=== PATIENT | male | born 1965 | race Caucasian/White ===

== ENCOUNTER 2016-11-14 17:15 | Observation (INO) ==
--- NOTE | 2016-11-14 17:26 | Emergency Department Note ---
Disposition Clinical Impression: Chest pain Disposition: Admitted As Inpatient General Adult HPI - General Chief complaint: ED Chest Pain Stated complaint: cp Time Seen by Provider: 11/14/16 17:16 Nursing Notes Reviewed: Yes Vital Signs Reviewed: Yes - Related Data Home Medications Medication Instructions Recorded Confirmed Lisinopril 02/20/16 Nexium 02/20/16 Tylenol 02/20/16 Previous Rx's Medication Instructions Recorded Amoxicillin 875 mg PO BID #20 tablet 02/20/16 GuaiFENesin ER [Mucinex] 1,200 mg PO BID #20 tbbp.12hr 02/20/16 Loratadine/Pseudophed (12 HR) 1 each PO BID #20 tab.er.12h 02/20/16 [Claritin D (12HR)] Allergies Allergy/AdvReac Type Severity Reaction Status Date / Time No Known Allergies Allergy Verified 02/20/16 10:54 Past Medical History - Past Medical History Medical history: Reports: GERD, hypertension - Social History Smoking Status: Never smoker Smokeless Tobacco Status: No Alcohol use: Reports: none Course Vital Signs Temperature 97.9 F 11/14/16 17:16 Pulse Rate 86 11/14/16 17:16 Respiratory Rate 18 11/14/16 17:16 Blood Pressure 137/93 11/14/16 17:16 O2 Sat by Pulse Oximetry 100 11/14/16 17:16 Temperature 97.9 F 11/14/16 17:16 Pulse Rate 85 11/14/16 17:50 Respiratory Rate 18 11/14/16 17:50 Blood Pressure 112/77 11/14/16 17:50 O2 Sat by Pulse Oximetry 98 11/14/16 17:50 Oxygen Delivery Oxygen Delivery Room Air Medical Decision Making - [facility] Narrative Medical decision making narrative: I examined this patient and my medical decision-making was reviewed with the Resident Physician. I agree with the documented findings, disposition and treatment plan as described except to the extent set forth below. Patient seen and evaluated on arrival with EMS and Dr. Churchill, I agree with his evaluation and management plan, cigarettes care the patient's stay. Patient had chest pressure after eating. He states had a history of GERD and thought it could be that. He called squad to gave him aspirin and nitroglycerin the pain started resolving on its own. No cardiac history in the past. Return to work EKG chest x-ray troponin labs and reassess. He is in agreement with this plan. 1800 hrs.: Patient's pain-free after 1 nitroglycerin. He did have his aspirin. Second EKG is done and shows a sinus rhythm, rate is 86, QRS is 89, QTC is 326 , no signs of acute ischemia, compared this with his previous EKG and shows no changes except for rate. Waiting on the rest of his labs. And then admission. Chest X-Ray 11/14/16 17:18 IMPRESSION: No acute cardiopulmonary process. D/ / Alen Ferreira MD / Alen Ferreira MD Interpreting Provider: Alen Ferreira MD 1836: Troponin is back as negative. Which is to be expected since the short duration of pain. He is pain-free at this time after 1 nitroglycerin. He did have his aspirin. Paging hospitalist for admission. He is in agreement. Impression is chest pain rule out ACS. - Lab Data Result diagrams: 11/14/16 17:51 11/14/16 17:51 Lab Results 11/14/16 11/14/16 11/14/16 Range/Units 17:51 17:51 17:51 WBC 5.9 (4.3-11.1) K/mcL RBC 5.46 (4.19-5.50) M/mcL Hgb 15.8 (12.9-16.9) g/dL Hct 45.9 (37.5-50.1) % MCV 84.1 (83.0-100.0) fL MCH 28.9 (28.0-33.3) pg MCHC 34.4 (31.6-35.5) g/dL RDW 12.4 (11.5-14.5) % Plt Count 217 (140-400) K/mcL MPV 10.4 (9.4-12.4) fL Immature Gran % 0.2 (0-4) % Seg Neutrophils % 64.2 % Lymphocytes % 24.3 % Monocytes % 7.6 % Eosinophils % 3.0 % Basophils % 0.7 % Neutrophils # 3.8 (1.6-8.9) K/mcL Lymphocytes # 1.4 (0.6-4.6) K/mcL Monocytes # 0.5 (0.0-1.3) K/mcL Eosinophils # 0.2 (0.0-0.6) K/mcL Basophils # 0.0 (0.0-0.2) K/mcL Sodium 139 (136-145) mEq/L Potassium 4.4 (3.5-4.5) mEq/L Chloride 104 (98-109) mEq/L Carbon Dioxide 31 H (19-29) mEq/L BUN 15 (8-26) mg/dL Creatinine 1.16 (0.72-1.25) mg/dL Est GFR ( Amer) > 60 (> 60) Est GFR (Non-Af Amer) > 60 (> 60) BUN/Creatinine Ratio 13 (6-26) Glucose 105 H (70-99) mg/dL Calculated Osmolality 289 (280-300) Calcium 9.7 (8.6-10.8) mg/dL Troponin I 0.00 (0-0.03) ng/mL
[2016-11-14] MEDS ORDERED: Nitroglycerin 0.4 MG TAB.SUBL SL PRN (17:32)
--- NOTE | 2016-11-14 17:52 | Emergency Department Note ---
Disposition Clinical Impression: Chest pain Qualifiers: Chest pain type: unspecified Qualified Code(s): R07.9 - Chest pain, unspecified Disposition: Admitted As Inpatient Condition: Good Time of Disposition: 18:45 General Adult HPI - General Chief complaint: ED Chest Pain Stated complaint: cp Time Seen by Provider: 11/14/16 17:16 Source: patient, EMS Mode of arrival: EMS Limitations: no limitations Nursing Notes Reviewed: Yes Vital Signs Reviewed: Yes - History of Present Illness HPI Narrative: This 51-year-old male with a past medical history of hypertension presents to the emergency department via EMS with a chief complaint of chest pain that started 2 hours ago. He describes his pain as a pressure on his chest that radiates into his left arm and left lower scapula. He states that he ate a hamburger, then started walking around at work and then he started having the pressure in his chest after he exerted himself. He states that this is his first episode of having chest pain like this. He states that after about 5 minutes, the episode started to resolve. He denies any family history of myocardial infarction, denies smoking, denies having diabetes, denies having hyper lipidemia. Pain Scale: 2 - Related Data Home Medications Medication Instructions Recorded Confirmed Esomeprazole Magnesium [Nexium 20 mg PO DAILY 02/20/16 11/14/16 24Hr] Lisinopril [Zestril] 10 mg PO DAILY 02/20/16 11/14/16 Albuterol Sulfate [Albuterol 2 puff IH Q4H PRN 11/14/16 11/14/16 Inhaler] Famotidine [Heartburn Prevention] 20 mg PO DAILY PRN 11/14/16 11/14/16 Fluticasone Propionate Nasal 50 mcg NS DAILY PRN 11/14/16 11/14/16 [Flonase] Loratadine [Claritin] 10 mg PO DAILY 11/14/16 11/14/16 Allergies Allergy/AdvReac Type Severity Reaction Status Date / Time No Known Allergies Allergy Verified 11/14/16 18:57 Constitutional: Denies: fever, chills, weakness Eyes: Denies: eye pain, eye discharge Cardiovascular: Reports: chest pain (Described as pressure lasting for approximately 5 minutes, not completely resolved.). Denies: palpitations Respiratory: Reports: cough, dyspnea. Denies: wheezes, hemoptysis, sputum production Gastrointestinal: Reports: nausea. Denies: abdominal pain, vomiting Integumentary: Denies: rash, abrasion Neurological: Reports: paresthesias (Left arm). Denies: headache Past Medical History - Past Medical History Medical history: Reports: GERD, hypertension Psychiatric history: Reports: no psych history - Social History Smoking Status: Never smoker Smokeless Tobacco Status: No Alcohol use: Reports: none Drug use: Reports: none Physical Exam - General Limitations: no limitations General appearance: alert, in no apparent distress - Head Head exam: atraumatic - Eye Eye exam: Absent: scleral icterus, conjunctival injection - Neck Neck exam: Present: full ROM, trachea midline. Absent: tenderness - Chest Chest inspection: Present: normal inspection, symmetric chest wall rise. Absent : tenderness - Respiratory Respiratory exam: Present: normal lung sounds bilaterally. Absent: respiratory distress, wheezes, stridor - Cardiovascular Cardiovascular exam: Present: regular rate, normal rhythm, normal heart sounds - Abdominal Exam Abdominal exam: Present: soft, Non-Tender. Absent: distention, guarding, rebound, rigidity - Extremities Exam Extremities exam: Present: normal inspection. Absent: tenderness, pedal edema - Back Exam Back exam: Present: normal inspection, full ROM. Absent: tenderness - Neurological Exam Neurological exam: Present: alert, oriented X3 - Psychiatric Psychiatric exam: Present: normal affect, normal mood - Skin Skin exam: Present: warm, diaphoresis Course - Reevaluation(s) Reevaluation #1: He was given 1 nitroglycerin sublingual and pain completely resolved. His blood pressure was 112/77. Time: 17:53 Vital Signs Temperature 97.9 F 11/14/16 17:16 Pulse Rate 86 11/14/16 17:16 Respiratory Rate 18 11/14/16 17:16 Blood Pressure 137/93 11/14/16 17:16 O2 Sat by Pulse Oximetry 100 11/14/16 17:16 Temperature 97.9 F 11/14/16 17:16 Pulse Rate 85 11/14/16 17:50 Respiratory Rate 18 11/14/16 18:53 Blood Pressure 111/74 11/14/16 18:53 O2 Sat by Pulse Oximetry 98 11/14/16 17:50 Oxygen Delivery Oxygen Delivery Room Air Medical Decision Making - MDM Narrative Medical decision making narrative: This is a 51-year-old male who presented to the emergency department via EMS with typical chest pain. Our biggest concern at this time was myocardial infarction. We performed an EKG, chest x-ray, troponin, CBC, CMP. All of the results of our labs, tests, and imaging were negative. Due to his chest pain being typical in nature, and the fact that he is a male over 40, and has hypertension, I think it will be in his best interest to admit him to the hospital for further evaluation. - Differential Diagnosis 1. Chest Pain - Lab Data Result diagrams: 11/14/16 17:51 11/14/16 17:51 Lab Results 11/14/16 11/14/16 11/14/16 Range/Units 17:51 17:51 17:51 WBC 5.9 (4.3-11.1) K/mcL RBC 5.46 (4.19-5.50) M/mcL Hgb 15.8 (12.9-16.9) g/dL Hct 45.9 (37.5-50.1) % MCV 84.1 (83.0-100.0) fL MCH 28.9 (28.0-33.3) pg MCHC 34.4 (31.6-35.5) g/dL RDW 12.4 (11.5-14.5) % Plt Count 217 (140-400) K/mcL MPV 10.4 (9.4-12.4) fL Immature Gran % 0.2 (0-4) % Seg Neutrophils % 64.2 % Lymphocytes % 24.3 % Monocytes % 7.6 % Eosinophils % 3.0 % Basophils % 0.7 % Neutrophils # 3.8 (1.6-8.9) K/mcL Lymphocytes # 1.4 (0.6-4.6) K/mcL Monocytes # 0.5 (0.0-1.3) K/mcL Eosinophils # 0.2 (0.0-0.6) K/mcL Basophils # 0.0 (0.0-0.2) K/mcL Sodium 139 (136-145) mEq/L Potassium 4.4 (3.5-4.5) mEq/L Chloride 104 (98-109) mEq/L Carbon Dioxide 31 H (19-29) mEq/L BUN 15 (8-26) mg/dL Creatinine 1.16 (0.72-1.25) mg/dL Est GFR ( Amer) > 60 (> 60) Est GFR (Non-Af Amer) > 60 (> 60) BUN/Creatinine Ratio 13 (6-26) Glucose 105 H (70-99) mg/dL Calculated Osmolality 289 (280-300) Calcium 9.7 (8.6-10.8) mg/dL Troponin I 0.00 (0-0.03) ng/mL - EKG Data EKG #1 EKG results narrative: 11/14/2016 1723 Ventricular rate 81 bpm, HI interval 131 ms, QRS duration 101 ms, QT 361 ms, QTC 399 ms, normal axis Normal sinus rhythm with a ventricular rate of 81 bpm. There are no ST elevations. This EKG is unchanged from the one performed on 10/06/2009. EKG #2 EKG results narrative: 11/14/2016 17:58 Ventricular rate 86 bpm, HI interval 132 ms, QRS duration 89 ms, QT 283 ms, QTC 326 ms, normal axis. Normal sinus rhythm with a ventricular rate of 86 bpm. There are no ST elevations. This EKG is unchanged from one performed on 11/14/2016 at 17:23.
[2016-11-14 18:01] LABS: Basophils % 0.7 %; Eosinophils # 0.2 K/mcL (0.0-0.6); Hematocrit 45.9 % (37.5-50.1); Hemoglobin 15.8 g/dL (12.9-16.9); Immature Granulocytes % 0.2 % (0-4); Lymphocytes # 1.4 K/mcL (0.6-4.6); Lymphocytes % 24.3 %; Mean Corpuscular HGB Conc 34.4 g/dL (31.6-35.5); Mean Corpuscular Hemoglobin 28.9 pg (28.0-33.3); Mean Corpuscular Volume 84.1 fL (83.0-100.0); Mean Platelet Volume 10.4 fL (9.4-12.4); Monocytes # 0.5 K/mcL (0.0-1.3); Monocytes % 7.6 %; Neutrophils # 3.8 K/mcL (1.6-8.9); Platelet Count 217 K/mcL (140-400); Red Blood Count 5.46 M/mcL (4.19-5.50); Red Cell Distribution Width 12.4 % (11.5-14.5); Segmented Neutrophils % 64.2 %
[2016-11-14 18:10] LABS: BUN/Creatinine Ratio 13 (6-26); Blood Urea Nitrogen 15 mg/dL (8-26); Calcium 9.7 mg/dL (8.6-10.8); Carbon Dioxide 31 mEq/L (19-29); Chloride 104 mEq/L (98-109); Glucose 105 mg/dL (70-99); Osmolality,Calculated 289 (280-300); Potassium 4.4 mEq/L (3.5-4.5); Sodium 139 mEq/L (136-145); eGFR For African Americans > 60 (> 60); eGFR For Non-African Americans > 60 (> 60)
[2016-11-14] MEDS ORDERED: Naloxone 0.4 MG/ML INJ IVP PRN (20:56)
[2016-11-14] MEDS ORDERED: *HR* Morphine 2 MG/ML SYRINGE IVP PRN (20:56)
--- NOTE | 2016-11-14 20:56 | Internal Med History&Physical ---
Date of Encounter: 11/14/16 Time of Encounter: 20:55 Assessment and Plan (1) Chest pain Current visit: Yes Status: Acute Highly suspicious for cardiac chest pain / unstable angina. Initial troponin is negative. Cardiac monitoring. Trend troponins. Aspirin, nitroglycerin PRN, enoxaparin 1 mg/kg. 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 If troponins are negative - will consider cardiac stress test. Check lipid panel Qualifiers: Chest pain type: chest pain due to myocardial ischemia Ischemic chest pain type: unstable angina pectoris Qualified Code(s): I20.0 - Unstable angina (2) HTN (hypertension) Current visit: Yes Status: Chronic BP is not elevated at this time. Hold lisinopril Qualifiers: Hypertension type: essential hypertension Qualified Code(s): I10 - Essential (primary) hypertension (3) GERD (gastroesophageal reflux disease) Current visit: Yes Status: Chronic Continue PPI Qualifiers: Esophagitis presence: esophagitis presence not specified Qualified Code(s) : K21.9 - Gastro-esophageal reflux disease without esophagitis (4) Asthma Current visit: Yes Status: Chronic Continue home medications Qualifiers: Asthma severity: unspecified severity Asthma complication type: uncomplicated Qualified Code(s): J45.909 - Unspecified asthma, uncomplicated Internal Medicine - H&P: HPI Chief complaint: Chest pain Admitted From: Emergency Dept Plans for Post Hospital Care: Home History of present illness: Mr. Garcia is a 51 year old with past medical history of hypertension, GERD and asthma continued on the thumb sudden onset severe, central chest pain / pressure while at work, at bout 3 PM today. The pain moved to the left side of chest and also felt like going into his neck and to the left scapular area. His left upper extremity felt numb. He felt nausea, sweating, lightheadedness and shortness of breath. He continued to have pain and called scattered about 4 PM. He was given aspirin and nitroglycerin, which helped the chest pressure. He denies any chest pain at the time of my evaluation. He denies cough, expectoration, abdominal pain, dysuria, hematuria, changes in bowel habits. He is not a current smoker, no family h/o CAD. He was evaluated in the emergency department - initial troponin is negative. Chest x-ray shows no acute cardiopulmonary process. He is admitted to the hospitalist service for further workup and management. Past Med Surg Social Fam HX - Past Medical History Medical history: GERD, hypertension Psychiatric history: no psych history - Social History Smoking Status: Never smoker Smokeless Tobacco Status: No Alcohol use: none Drug use: none - Family History Mother Hx Family Cancer: Yes (breast) Internal Medicine - H&P: Meds Esomeprazole Magnesium [Nexium 24Hr] 20 mg PO DAILY 02/20/16 [History] Lisinopril [Zestril] 10 mg PO DAILY 02/20/16 [History] Albuterol Sulfate [Albuterol Inhaler] 2 puff IH Q4H PRN 11/14/16 [History] Famotidine [Heartburn Prevention] 20 mg PO DAILY PRN 11/14/16 [History] Fluticasone Propionate Nasal [Flonase] 50 mcg NS DAILY PRN 11/14/16 [History] Loratadine [Claritin] 10 mg PO DAILY 11/14/16 [History] Allergies No Known Allergies Allergy (Verified 11/14/16 18:57) All Systems PM: A 10-system review of systems was performed and is negative for pertinent findings except as documented above in the HPI. - Constitutional Vitals: Temp Pulse Resp BP Pulse Ox 98.0 F 73 18 114/77 96 11/14/16 19:15 11/14/16 19:15 11/14/16 19:15 11/14/16 19:15 11/14/16 19:15 Exam: General: Not in acute distress at the time of my evaluation HEENT: Oral mucosa is moist. No conjunctival palor or scleral icterus Neck: No obvious neck swellings Lungs: Clear to auscultation Cardiac: Regular rate and rhythm. No significant murmurs Abdomen: Soft, non tender. Bowel sounds present Genitourinary: No valero catheter Neurological: Alert and oriented. No gross localizing deficits Psych: Not aggressive or agitated Extremities: no significant leg edema Skin: No generalized rash Internal Med - H&P Results - Labs CBC & Chem 7: 11/14/16 17:51 11/14/16 17:51 - EKG Data -: EKG Interpreted by Myself EKG shows normal: sinus rhythm - EKG Data EKG comments: T wave inversion in aVL 11/14/16 20:56 - Impressions ITS Impressions Chest X-Ray 11/14/16 17:18 IMPRESSION: No acute cardiopulmonary process. D/ / Alen Ferreira MD / Alen Ferreira MD Interpreting Provider: Alen Ferreira MD
[2016-11-14] MEDS ORDERED: *HR* Enoxaparin 120 MG/0.8 ML SYRINGE SQ STA (20:59)
[2016-11-15 03:07] LABS: BUN/Creatinine Ratio 13 (6-26); Blood Urea Nitrogen 14 mg/dL (8-26); Calcium 9.3 mg/dL (8.6-10.8); Carbon Dioxide 27 mEq/L (19-29); Chloride 106 mEq/L (98-109); Chol/HDL Ratio 5.4 (0-4.9); Cholesterol 209 mg/dL (< 200); Glucose 86 mg/dL (70-99); HDL Cholesterol 39 mg/dL (40-59); LDL Cholesterol,Calculated 138 mg/dL (0-99); Magnesium 1.9 mg/dL (1.6-2.6); Osmolality,Calculated 288 (280-300); Sodium 139 mEq/L (136-145); Triglycerides 160 mg/dL (< 150); eGFR For African Americans > 60 (> 60); eGFR For Non-African Americans > 60 (> 60)
--- NOTE | 2016-11-15 06:41 | Electrocardiograph Report ---
[address] [address] Test Date: 2016-11-14 Pat Name: Cayetano Garcia Department: 103 Room: 3B Gender: Delivery Architect: : 1965 Requested By: Willy Mcnair Order Number: [id number] Reading MD: Christofer Goldberg MD Measurements Intervals [place] Rate: 86 P: 22 MS: 132 QRS: -15 QRSD: 89 T: 87 QT: 283 QTc: 326 Interpretive Statements SINUS RHYTHM Electronically Signed On 11-15-2016 6:40:17 EDT by Christofer Goldberg MD
[2016-11-15] MEDS ORDERED: Aspirin 325 MG TABLET PO SCH (09:00)
[2016-11-15 09:34] VITALS: BP 133/91
--- NOTE | 2016-11-15 10:38 | Nuclear Medicine Stress Report ---
Exercise Nuclear Stress Name: Cayetano Garcia Date of Study: 11/15/2016 Date: 1965 Ht: 72.0 in Medical Record#: [id number] Age: 51 Wt: 234.0 lb Gender: Male Order #: [id number] Location: [facility] IP Room: [facility] Supervising Provider: Claire Rivero CNP Reading Physician: Shelli Mathis DO Ordering Physician: Sandra Ramirez CNP Primary Care Physician: Mick Rubi MD Stress Technologist: Uriel Gray, SMALL BUSINESS CONSULTANT, CPFT Social Media Assistant: Janie Fernández Indications: Chest Pain Impression: Perfusion imaging was negative for ischemia or infarct. Exercise ECG was negative for ischemia. Gated EF = >70%. Stress Test Summary: Stress Test Type: Treadmill Protocol: Christofer Baseline Information: Initial Heart Rate: 74 Blood Pressure: 124/88 Stress Information: Stress Time: 8 min 36 sec Test Terminated Due to (primary): Dyspnea Fatigue Maximum Blood Pressure: 168/84 Maximum Heart Rate: 153 Percent Maximum Heart Rate Achieved: 90 Double Product: [id number] METS Reached: 10.1 Symptoms: Shortness of breath, Fatigue Nuclear Summary: SPECT myocardial perfusion imaging using Tc99m Sestamibi given intravenously was performed at rest and following cardiac stress testing. The resting images were obtained following initial dose of 10.9 mCi. Following stress an additional dose of 34.5 mCi was given at peak exercise or 30 seconds post regadenoson infusion. Medication Given: Time Medication Dose Units Route Findings: Stress Note * Resting ECG demonstrated normal sinus rhythm. * Exercise ECG is negative for ischemia. * Occasional PVCs noted during stress. * Patient had no chest pain during stress. * The exercise capacity was good. Hemodynamic responses * Normal hemodynamic responses to exercise. Study Quality * Study quality is good. Gated EF > 70% * Gated EF > 70%. Left Ventricle * The left ventricle is not dilated. NORMALS * Normal wall motion. * Normal segmental perfusion in stress. * Normal Segmental Perfusion in rest. TID * No evidence of transient ischemic dilatation. Lung Uptake * There is no evidence of increase lung uptake. Updated by Shelli Mathis on 11/15/2016 10:32:44 AM electronically signed on 11/15/2016 10:33:18 AM with status of Final
--- NOTE | 2016-11-15 11:16 | Discharge Summary ---
Date of Encounter: 11/15/16 Time of Encounter: 10:35 - Discharge Diagnosis (1) Chest pain Priority: Primary Status: Acute Comments: Pt denies chest pain since last night. Pt will be sent home on ASA 81 mg daily and Simvastatin 10mg daily. Stress test was negative for ischemia or infarct. Gated EF=>70%. Echo LVEF 60%, normal systolic function, mild diastolic dysfunction ,normal RV size and function, no valvular dysfunction, and no pulmonary HTN. Chest x-ray was negative. Troponins negative 2. Lipid panel was elevated, will start simvastatin this visit. Qualifiers: Chest pain type: chest pain due to myocardial ischemia Ischemic chest pain type: unstable angina pectoris Qualified Code(s): I20.0 - Unstable angina (2) HTN (hypertension) Priority: Secondary Status: Chronic Comments: Well-controlled in inpatient setting. Continue home medications. Qualifiers: Hypertension type: essential hypertension Qualified Code(s): I10 - Essential (primary) hypertension (3) GERD (gastroesophageal reflux disease) Priority: Secondary Status: Chronic Comments: Continue PPI. Qualifiers: Esophagitis presence: esophagitis presence not specified Qualified Code(s) : K21.9 - Gastro-esophageal reflux disease without esophagitis (4) Asthma Priority: Secondary Status: Chronic Comments: No acute exacerbation. Patient will continue home medications. Lungs are clear. No wheezing, stridor, rhonchi, Rales, no respiratory distress. Qualifiers: Asthma severity: unspecified severity Asthma complication type: uncomplicated Qualified Code(s): J45.909 - Unspecified asthma, uncomplicated - Discharge Medications Prescriptions: Simvastatin [Zocor] 10 mg PO QPM #30 tablet Home Medications: Esomeprazole Magnesium [Nexium 24Hr] 20 mg PO DAILY 02/20/16 [History] Lisinopril [Zestril] 10 mg PO DAILY 02/20/16 [History] Albuterol Sulfate [Albuterol Inhaler] 2 puff IH Q4H PRN 11/14/16 [History] Famotidine [Heartburn Prevention] 20 mg PO DAILY PRN 11/14/16 [History] Fluticasone Propionate Nasal [Flonase] 50 mcg NS DAILY PRN 11/14/16 [History] Loratadine [Claritin] 10 mg PO DAILY 11/14/16 [History] Simvastatin [Zocor] 10 mg PO QPM #30 tablet 11/15/16 [Rx] Allergies/Adverse Reactions: Allergies No Known Allergies Allergy (Verified 11/14/16 18:57) Procedures/tests Complete & Pending: Procedures Performed prior 72 hours Category Date Time Status NM chris perf SPECT multi [NM] Routine Exams 11/15/16 05:03 Taken ECG 12 lead ECG [ECG] Routine Y 11/14/16 17:23 Completed EV echocardiogram Routine Y 11/15/16 22:52 Completed SP exercise nuclear stress Routine Y 11/15/16 07:30 Completed Date of admission: 11/14/16 18:48 Primary care physician: Mick Rubi MD Discharging clinician: Esperanza Besnon Anticipated date of discharge: 11/15/16 - Patient Status Disposition: Home, Self-Care Functional capacity at discharge: independent ambulation Overall status at discharge: patient is back to baseline - Discharge Instructions Follow Up With: Mick Rubi MD [Primary Care Provider] - Additional Instructions: Follow with your primary care physician to be cleared to return to work. Try to have an appointment within the next week to 10 days. Resume your normal home medications. Start your simvastatin tonight. Return to the emergency department as needed for any other problems or concerns or if her symptoms return. - Diet and Activity Activity: increase activity as tolerated, return to work once cleared by your PCP/specialist Diet: advance to your usual diet Hospital course: Mr. Garcia is a 51 year old male with past medical history of hypertension, GERD, asthma, presented to the emergency department yesterday with complaint of chest tightness at work. He says that he ate, then a little bit after became diaphoretic and nauseated. He said he had a tightness in the mid sternal area with radiation to the left side radiation to the back. He said he then began having left arm numbness and tingling. Pressure radiated to his neck while he was working in his left arm stopped working. Symptoms lasted approximately one hour and were relieved with nitroglycerin. He has had no pain since last night. His troponins have been negative. Chest x-ray is negative. Echocardiogram showed LVEF of 60% with normal systolic function, evidence of mild diastolic dysfunction, no significant valvular dysfunction, no pulmonary hypertension. Stress test was negative for ischemia or infarct with a gated EF greater than 70%. Patient's lipid panel was mildly elevated with cholesterol 209. He will be started on simvastatin 10 mg daily. He will also continue aspirin daily at home. 81 mg, as well as his normal home medications. His labs and vital signs have been stable and within normal limits, he is pain free, and his physical exam was unremarkable. I have recommended that he be cleared to return to work by his PCP. Pt is ready for discharge. - Time Spent with Patient Total time spent providing and/or coordinating discharge services: Less than 30 minutes - Constitutional Vitals: Temp Pulse Resp BP Pulse Ox 98.2 F 75 15 133/91 96 11/15/16 09:33 11/15/16 09:33 11/15/16 09:33 11/15/16 09:33 11/15/16 09:33 General appearance: Present: cooperative, A&O X 3, pleasant, no acute distress, answers questions appropriately - Head Head exam: Present: normal inspection - Eye Eye exam: Present: normal appearance, conjuntiva pink - ENT ENT exam: Present: mucous membranes dry, normal exam, normal external ear exam - Neck Neck exam general surgery: Present: normal inspection. Absent: lymphadenopathy , tenderness - Respiratory Respiratory exam: Present: accessory muscle use, CTAB. Absent: chest wall tenderness, rales, respiratory distress, rhonchi, stridor, wheezes - Cardiovascular Cardiovascular exam: Present: RRR, +S1, +S2, +S3. Absent: diastolic murmur, systolic murmur - GI/Abdominal GI/Abdominal exam: Present: soft. Absent: hernia, hepatomegaly, tenderness - Extremities Exam Extremities exam: Present: warm, radial pulses palpable and symetrical. Absent : cyanotic, pedal edema, tenderness - Neurological Exam Neurological exam: Present: alert, oriented X3. Absent: no focal deficits, facial droop, speech deficit - Skin Skin exam: Present: dry, normal color, warm. Absent: rash
--- NOTE | 2016-11-15 15:15 | Electrocardiograph Report ---
[place] [id number] Test Date: 2016-11-14 Pat Name: Cayetano Garcia Department: 103 Room: 3B Gender: M [employer] Signal Technician: [facility] : 1965 Requested By: Sandra Ramirez Order Number: [id number] Reading MD: Christofer Goldberg MD Measurements Intervals [place] Rate: 81 P: 26 [place]: 131 QRS: -4 QRSD: 101 T: 63 QT: 361 QTc: 399 Interpretive Statements SINUS RHYTHM Electronically Signed On 11-15-2016 15:13:09 EDT by Christofer Goldberg MD
== END 2016-11-15 12:50 | disposition home or self-care (01) ==
LOC: EMEROO 17:15 → 3BNU 17:15
PROVIDERS: ADMIT Internal Medicine; ATTEND Nurse Practitioner Family

== ENCOUNTER 2017-07-19 17:36 | Observation (INO) ==
[2017-07-19] MEDS ORDERED: Aspirin 325 MG TABLET PO ONE (17:45)
[2017-07-19] MEDS ORDERED: Nitroglycerin 0.4 MG TAB.SUBL SL PRN (17:51)
--- NOTE | 2017-07-19 17:54 | Emergency Department Note ---
Disposition Clinical Impression: Chest pain Qualifiers: Chest pain type: unspecified Qualified Code(s): R07.9 - Chest pain, unspecified Disposition: Admitted As Inpatient Condition: Undetermined Referrals: Mick Rubi MD [Primary Care Provider] - Forms: ED Satisfaction Letter Time of Disposition: 19:36 Chest Pain HPI - General Chief Complaint: ED Chest Pain Stated Complaint: chest pain, dyspnea Time Seen by Provider: 07/19/17 17:40 Source: patient Mode of arrival: ambulatory Limitations: no limitations Vital Signs Reviewed: Yes Nursing Notes Reviewed: Yes - History of Present Illness HPI Narrative: 51-year-old male with history of hypertension hyperlipidemia arrives to the emergency department with complaint of chest pressure over the course the past 3 days. The patient states that while working earlier he had an episode where he had left-sided chest discomfort and diaphoresis. It was at that time he was brought to the emergency department by significant other. The patient has some associated shortness of breath with it. He is still having some chest pressure at this time. He denies any other complaints. The patient's last stress test was roughly 9 months ago which My was normal. But the patient states that he was told that he may not have an abnormal stress test even if he is having an HI by his PCP. Severity scale (1-10): 4 - Related Data Home Medications Medication Instructions Recorded Confirmed Lisinopril [Zestril] 10 mg PO DAILY 02/20/16 07/19/17 Loratadine [Claritin] 10 mg PO DAILY 11/14/16 07/19/17 Diltiazem CD (24hr) [Cardizem CD] 240 mg PO DAILY 07/19/17 07/19/17 Esomeprazole Magnesium [Nexium] 40 mg PO DAILY 07/19/17 07/19/17 Nitroglycerin [Nitroglycerin] 0.4 mg PO Q5M PRN 07/19/17 07/19/17 Sucralfate [Carafate] 1 gm PO QID 07/19/17 07/19/17 Allergies Allergy/AdvReac Type Severity Reaction Status Date / Time No Known Allergies Allergy Verified 07/19/17 17:39 All systems ED: reviewed and negative except as stated. Constitutional: Denies: fever, chills, weakness ENT ED: Denies: congestion Cardiovascular: Reports: chest pain, dyspnea on exertion. Denies: palpitations , orthopnea, edema, syncope Respiratory: Reports: dyspnea. Denies: cough, wheezes, hemoptysis, stridor, sputum production Gastrointestinal: Denies: abdominal pain, nausea, vomiting, diarrhea, constipation Genitourinary: Denies: urgency Musculoskeletal: Denies: back pain, neck pain Neurological: Denies: headache Chest Pain PMH - Past Medical History Medical history: Reports: GERD, hypertension Surgical history: Reports: non-contributory Psychiatric history: Reports: no psych history Prior Cardiac Testing/Procedures: Stress Test - Social History Smoking Status: Former smoker Alcohol use: Reports: none Drug use: Reports: none Physical Exam - General Limitations: no limitations General appearance: alert, in no apparent distress - Head Head exam: atraumatic, normocephalic, normal inspection - Eye Eye exam: Present: normal appearance, PERRL, EOMI - ENT ENT exam: normal exam, normal oropharynx, mucous membranes moist - Neck Neck exam: Present: normal inspection, full ROM, trachea midline - Chest Chest inspection: Present: normal inspection, symmetric chest wall rise - Respiratory Respiratory exam: Present: normal lung sounds bilaterally - Cardiovascular Cardiovascular exam: Present: regular rate, normal rhythm, normal heart sounds - Abdominal Exam Abdominal exam: Present: soft, Non-Tender. Absent: tenderness, distention, guarding, rebound, rigidity - Extremities Exam Extremities exam: Present: normal inspection, full ROM. Absent: tenderness, pedal edema - Neurological Exam Neurological exam: Present: alert, oriented X3 Course Vital Signs Temperature 98.4 F 07/19/17 17:37 Pulse Rate 76 07/19/17 17:37 Respiratory Rate 16 07/19/17 17:37 Blood Pressure 141/87 07/19/17 17:37 O2 Sat by Pulse Oximetry 98 07/19/17 17:37 Temperature 98.4 F 07/19/17 17:37 Pulse Rate 70 07/19/17 18:02 Respiratory Rate 16 07/19/17 18:02 Blood Pressure 131/89 07/19/17 18:02 O2 Sat by Pulse Oximetry 98 07/19/17 18:02 Oxygen Delivery Oxygen Delivery Room Air Chest Pain - MDM Narrative Medical decision making narrative: Workup in the emergency department demonstrates no acute process. The patient has a concerning story and was diaphoretic prior to arrival in the emergency department. The patient will be admitted to the hospital for further trending of the troponins and likely cardiology consult. The patient made aware and agrees to plan. No further questions or concerns noted at this time. Accepted Dr. Goldman - Lab Data Lab results reviewed: Yes I reviewed the patient's lab results. Result diagrams: 07/19/17 17:45 07/19/17 17:45 Lab Results 07/19/17 07/19/17 07/19/17 Range/Units 17:45 17:45 17:51 WBC 6.2 (4.3-11.1) K/mcL RBC 5.63 H (4.19-5.50) M/mcL Hgb 16.1 (12.9-16.9) g/dL Hct 47.9 (37.5-50.1) % MCV 85.1 (83.0-100.0) fL MCH 28.6 (28.0-33.3) pg MCHC 33.6 (31.6-35.5) g/dL RDW 12.5 (11.5-14.5) % Plt Count 251 (140-400) K/mcL MPV 10.8 (9.4-12.4) fL Immature Gran % 0.2 (0-4) % Seg Neutrophils % 66.8 % Lymphocytes % 23.2 % Monocytes % 6.6 % Eosinophils % 2.4 % Basophils % 0.8 % Neutrophils # 4.2 (1.6-8.9) K/mcL Lymphocytes # 1.4 (0.6-4.6) K/mcL Monocytes # 0.4 (0.0-1.3) K/mcL Eosinophils # 0.2 (0.0-0.6) K/mcL Basophils # 0.1 (0.0-0.2) K/mcL PT 11.9 (9.4-12.1) Seconds INR 1.1 APTT 28.7 (26.0-36.0) Seconds Sodium 138 (136-145) mEq/L Potassium 3.8 (3.5-5.1) mEq/L Chloride 106 (98-107) mEq/L Carbon Dioxide 25 (23-29) mEq/L BUN 11 (6-20) mg/dL Creatinine 1.09 (0.70-1.30) mg/dL Est GFR ( Amer) > 60 (> 60) Est GFR (Non-Af Amer) > 60 (> 60) BUN/Creatinine Ratio 10 (6-26) Glucose 104 (70-105) mg/dL Calculated Osmolality 286 (280-300) Calcium 9.5 (8.6-10.3) mg/dL Troponin I < 0.03 (< 0.04) ng/mL - Radiology Data Radiology results reviewed: Yes I reviewed the patient's radiology results. Chest X-Ray 07/19/17 17:45 IMPRESSION: No acute findings in the chest. D/ / Yong Wagner MD / Yong Wagner MD Interpreting Provider: Yong Wagner MD - EKG Data EKG attestation: Yes I reviewed and interpreted this EKG. EKG results narrative: Heart rate 76 bpm. Normal sinus rhythm. No ST elevation or ST depression noted. EKG with nonspecific changes noted from EKG from 11/14/2016. Heart Score - Score History: Highly Suspicious EKG: Non Specific repolarisation Disturbance Age: 45-65 Risk Factors: Equal/Greater than 3 risk factor or history of atherosclerotic disease Troponin: Less than normal limit HEART Score Total: 6
[2017-07-19 18:30] LABS: Basophils # 0.1 K/mcL (0.0-0.2); Basophils % 0.8 %; Eosinophils # 0.2 K/mcL (0.0-0.6); Eosinophils % 2.4 %; Hematocrit 47.9 % (37.5-50.1); Hemoglobin 16.1 g/dL (12.9-16.9); Immature Granulocytes % 0.2 % (0-4); Lymphocytes # 1.4 K/mcL (0.6-4.6); Lymphocytes % 23.2 %; Mean Corpuscular HGB Conc 33.6 g/dL (31.6-35.5); Mean Corpuscular Hemoglobin 28.6 pg (28.0-33.3); Mean Corpuscular Volume 85.1 fL (83.0-100.0); Mean Platelet Volume 10.8 fL (9.4-12.4); Monocytes # 0.4 K/mcL (0.0-1.3); Monocytes % 6.6 %; Neutrophils # 4.2 K/mcL (1.6-8.9); Platelet Count 251 K/mcL (140-400); Red Blood Count 5.63 M/mcL (4.19-5.50); Red Cell Distribution Width 12.5 % (11.5-14.5); Segmented Neutrophils % 66.8 %
[2017-07-19 18:34] LABS: INR 1.1; Prothrombin Time 11.9 Seconds (9.4-12.1)
[2017-07-19 18:36] LABS: Activated Partial Thrombo Time 28.7 Seconds (26.0-36.0)
[2017-07-19 18:47] LABS: BUN/Creatinine Ratio 10 (6-26); Blood Urea Nitrogen 11 mg/dL (6-20); Calcium 9.5 mg/dL (8.6-10.3); Carbon Dioxide 25 mEq/L (23-29); Chloride 106 mEq/L (98-107); Glucose 104 mg/dL (70-105); Osmolality,Calculated 286 (280-300); Potassium 3.8 mEq/L (3.5-5.1); Sodium 138 mEq/L (136-145); Troponin I < 0.03 ng/mL (< 0.04); eGFR For African Americans > 60 (> 60); eGFR For Non-African Americans > 60 (> 60)
--- NOTE | 2017-07-19 19:06 | Emergency Department Note ---
Disposition Clinical Impression: Chest pain Qualifiers: Chest pain type: unspecified Qualified Code(s): R07.9 - Chest pain, unspecified Disposition: Admitted As Inpatient Condition: Undetermined General Adult HPI - General Chief complaint: ED Chest Pain Stated complaint: chest pain, dyspnea Time Seen by Provider: 07/19/17 17:40 Source: patient Mode of arrival: ambulatory Limitations: no limitations - History of Present Illness Pain Scale: 4 - Related Data Home Medications Medication Instructions Recorded Confirmed Lisinopril [Zestril] 10 mg PO DAILY 02/20/16 07/19/17 Loratadine [Claritin] 10 mg PO DAILY 11/14/16 07/19/17 Diltiazem CD (24hr) [Cardizem CD] 240 mg PO DAILY 07/19/17 07/19/17 Esomeprazole Magnesium [Nexium] 40 mg PO DAILY 07/19/17 07/19/17 Nitroglycerin 0.4 mg PO Q5M PRN 07/19/17 07/19/17 Sucralfate [Carafate] 1 gm PO QID 07/19/17 07/19/17 Previous Rx's Medication Instructions Recorded Aspirin Enteric Coated [Aspirin EC] 81 mg PO DAILY tablet. 07/20/17 Atorvastatin Calcium [Lipitor] 20 mg PO HS #30 tablet 07/20/17 Allergies Allergy/AdvReac Type Severity Reaction Status Date / Time No Known Allergies Allergy Verified 07/19/17 17:39 Constitutional: Denies: fever, chills, weakness ENT ED: Denies: congestion Cardiovascular: Reports: chest pain, dyspnea on exertion. Denies: palpitations , orthopnea, edema, syncope Respiratory: Reports: dyspnea. Denies: cough, wheezes, hemoptysis, stridor, sputum production Gastrointestinal: Denies: abdominal pain, nausea, vomiting, diarrhea, constipation Genitourinary: Denies: urgency Musculoskeletal: Denies: back pain, neck pain Neurological: Denies: headache Past Medical History - Past Medical History Medical history: Reports: GERD, hypertension Surgical history: Reports: non-contributory Psychiatric history: Reports: no psych history - Social History Smoking Status: Former smoker Smokeless Tobacco Status: No Alcohol use: Reports: none Drug use: Reports: none Physical Exam - General Limitations: no limitations General appearance: alert, in no apparent distress Course Vital Signs Temperature 98.4 F 07/19/17 17:37 Pulse Rate 76 07/19/17 17:37 Respiratory Rate 16 07/19/17 17:37 Blood Pressure 141/87 07/19/17 17:37 O2 Sat by Pulse Oximetry 98 07/19/17 17:37 Temperature 98.2 F 07/20/17 11:05 Pulse Rate 78 07/20/17 11:05 Respiratory Rate 18 07/20/17 11:05 Blood Pressure 109/70 07/20/17 11:05 O2 Sat by Pulse Oximetry 99 07/20/17 11:05 Oxygen Delivery Oxygen Delivery Room Air Medical Decision Making - Lab Data Result diagrams: 07/20/17 00:21 07/20/17 00:21 Lab Results 07/19/17 07/19/17 07/19/17 Range/Units 17:45 17:45 17:51 WBC 6.2 (4.3-11.1) K/mcL RBC 5.63 H (4.19-5.50) M/mcL Hgb 16.1 (12.9-16.9) g/dL Hct 47.9 (37.5-50.1) % MCV 85.1 (83.0-100.0) fL MCH 28.6 (28.0-33.3) pg MCHC 33.6 (31.6-35.5) g/dL RDW 12.5 (11.5-14.5) % Plt Count 251 (140-400) K/mcL MPV 10.8 (9.4-12.4) fL Immature Gran % 0.2 (0-4) % Seg Neutrophils % 66.8 % Lymphocytes % 23.2 % Monocytes % 6.6 % Eosinophils % 2.4 % Basophils % 0.8 % Neutrophils # 4.2 (1.6-8.9) K/mcL Lymphocytes # 1.4 (0.6-4.6) K/mcL Monocytes # 0.4 (0.0-1.3) K/mcL Eosinophils # 0.2 (0.0-0.6) K/mcL Basophils # 0.1 (0.0-0.2) K/mcL PT 11.9 (9.4-12.1) Seconds INR 1.1 APTT 28.7 (26.0-36.0) Seconds Sodium 138 (136-145) mEq/L Potassium 3.8 (3.5-5.1) mEq/L Chloride 106 (98-107) mEq/L Carbon Dioxide 25 (23-29) mEq/L BUN 11 (6-20) mg/dL Creatinine 1.09 (0.70-1.30) mg/dL Est GFR ( Amer) > 60 (> 60) Est GFR (Non-Af Amer) > 60 (> 60) BUN/Creatinine Ratio 10 (6-26) Glucose 104 (70-105) mg/dL Calculated Osmolality 286 (280-300) Calcium 9.5 (8.6-10.3) mg/dL Troponin I < 0.03 (< 0.04) ng/mL Attestation Statement - Attestation Attestation: I examined this patient and my medical decision-making was reviewed with the Resident Physician. I agree with the documented findings, disposition and treatment plan as described except to the extent set forth below. 51 year old male prsentes to the ED with complaints of chest pressure that is ismliar to his anginal event in in october which at that time was a normal stress test. He states that the pressure has returned and that the ASA and nitro therpay has helped in the past and he has exertional dyspnea in addition to this pressure. CArdiopulmonary work is otherwise unremarkable. However secondary to clinlical and medical histroy he would benefit from admission for CP r/o ACS
--- NOTE | 2017-07-19 20:52 | Internal Med History&Physical ---
Date of Encounter: 07/19/17 Time of Encounter: 20:45 Assessment and Plan (1) Chest pain Current visit: Yes Status: Acute Chest pain has atypical and typical characteristics. At this time patient is chest pain-free. EKG shows no evidence of acute ischemia. Patient given full dose aspirin. At this time patient is hemodynamically stable. No clinical evidence of pulmonary embolism or aortic pathology. Patient had stress test in September 2016: Findings included exercise ECG negative for ischemia, there is no chest pain during stress test, there is good exercise capacity. EF approximately 70%. Please refer to report for full details. Patient also notes he was worked up for possible noncardiac etiologies including an EGD which showed evidence of reflux disease. Cardiology consultation, cycle troponin x3 , continuous monitoring specialist. If Workup remains unremarkable consider evaluation with high-resolution CT of the lungs look for underlying disease. Patient notes he works with [employer] and has inhaled dust in the past. Qualifiers: Chest pain type: unspecified Qualified Code(s): R07.9 - Chest pain, unspecified (2) HTN (hypertension) Current visit: No Status: Chronic Continue all medications, adjust as needed Qualifiers: Hypertension type: essential hypertension Qualified Code(s): I10 - Essential (primary) hypertension (3) Pain of left scapula Current visit: Yes Status: Acute Patient notes left scapular pain for 2-3 years. Unable to reproduce pain in this area with palpation Unable to localize this pain. Patient denies any workup in the past per his primary physician. We will obtain plain back/scapular film. Consider additional imaging of shoulder, cervical region for possible referred pain? Patient undergoing cardiovascular evaluation to rule out an anginal equivalent. (4) DVT prophylaxis Current visit: Yes Status: Acute SCD's , ambulate If patient remains in the hospital and CBC remains stable can thus start chemical prophylaxis Internal Medicine - H&P: HPI Chief complaint: Chest pain History of present illness: Mr. Garcia is a 51 year old male history of hypertension who presents with complaint of chest pain. Patient notes chest pain located midsternum. Patient denies any radiation of this chest pain. Patient denies radiation to his bilateral arms or neck. There is no numbness or tingling in any extremity. Patient denies any true alleviating or aggravating factors. Patient notes he had similar pain last summer and was admitted to the hospital. At that time he had echocardiogram and stress testing which were unremarkable per report. Patient was seen Dr. Carter in office. Patient notes he was referred to have a second stress test. Patient was told that he was unable to have second stress test due to having one recently in September 2016. Since then patient has not had any additional follow-up. Patient notes chronic left scapular pain. Patient had this pain for the last 2-3 years. Patient has not had any imaging of his back. In the emergency department patient he has received full dose aspirin. Patient at this time is chest pain free. Patient notes he feels he is back to his baseline. Patient currently denies headache, visual change, neck pain or focal weakness. Chest pain has resolved. Currently denies abdominal pain, nausea or vomiting. Denies fever, chills or rigors. Patient notes mild cough without sputum but notes secondary to inhaling dry wall dust today. Patient currently denies melena or hematochezia. Denies any focal weakness. Patient to be admitted for further evaluation. Patient voices no other concerns. Past Med Surg Social Fam HX - Past Medical History Medical history: GERD, hypertension, other (Patient he may have had a questionable CVA/LOC over 20 years ago. Patient denies any deficits.) Psychiatric history: no psych history - Past Surgical History Surgical History: non-contributory, vasectomy, other (Neck surgery unspecified, vasectomy) - Social History Smoking Status: Former smoker Smokeless Tobacco Status: No Alcohol use: none Drug use: none Occupational status: employed - Family History Mother Hx Family Cancer: Yes (breast) Internal Medicine - H&P: Meds Lisinopril [Zestril] 10 mg PO DAILY 02/20/16 [History] Loratadine [Claritin] 10 mg PO DAILY 11/14/16 [History] Diltiazem CD (24hr) [Cardizem CD] 240 mg PO DAILY 07/19/17 [History] Esomeprazole Magnesium [Nexium] 40 mg PO DAILY 07/19/17 [History] Nitroglycerin [Nitroglycerin] 0.4 mg PO Q5M PRN 07/19/17 [History] Sucralfate [Carafate] 1 gm PO QID 07/19/17 [History] 3 Allergy/AdvReac Type Severity Reaction Status Date / Time No Known Allergies Allergy Verified 07/19/17 17:39 All Systems PM: A 10-system review of systems was performed and is negative for pertinent findings except as documented above in the HPI. - Constitutional Vitals: Temp Pulse Resp BP Pulse Ox 98.4 F 70 16 131/89 98 07/19/17 17:37 07/19/17 18:02 07/19/17 18:02 07/19/17 18:02 07/19/17 18:02 General appearance: Present: A&O X 3 Exam: Vital signs reviewed General: Anxious, calm, cooperative, speaking in full sentences HEENT: Atraumatic normocephalic, extraocular movements are, PERRL, no scleral icterus Neck: Supple, no pain to palpation, full range of motion, no JVD Heart: Normal S1-S2 regular rate and rhythm Lungs: Clear to auscultation, no rales or rhonchi appreciated, no wheezing Abdomen: Soft, nontender, nondistended, positive bowel sounds, no guarding, no rigidity Musculoskeletal: Patient moves all 4 extremities. The patient enlarged, no spinal tenderness, unable to palpate any tenderness under scapular region Extremities: No edema, no new rash Skin: No rash Neuro: non focal, no lateralization, CN intact, strength equal upper and lower extremities 5/5 Psychiatric normal affect Internal Med - H&P Results - Labs CBC & Chem 7: 07/19/17 17:45 07/19/17 17:45
[2017-07-19] MEDS ORDERED: Naloxone 0.4 MG/ML INJ IVP PRN (21:11)
[2017-07-20 01:19] LABS: Basophils # 0.1 K/mcL (0.0-0.2); Basophils % 0.7 %; Eosinophils # 0.2 K/mcL (0.0-0.6); Hematocrit 44.7 % (37.5-50.1); Hemoglobin 15.1 g/dL (12.9-16.9); Immature Granulocytes % 0.4 % (0-4); Lymphocytes # 1.9 K/mcL (0.6-4.6); Mean Corpuscular HGB Conc 33.8 g/dL (31.6-35.5); Mean Corpuscular Hemoglobin 28.9 pg (28.0-33.3); Mean Corpuscular Volume 85.6 fL (83.0-100.0); Monocytes # 0.6 K/mcL (0.0-1.3); Monocytes % 9.1 %; Neutrophils # 3.9 K/mcL (1.6-8.9); Platelet Count 247 K/mcL (140-400); Red Blood Count 5.22 M/mcL (4.19-5.50); Red Cell Distribution Width 12.5 % (11.5-14.5); Segmented Neutrophils % 57.8 %
[2017-07-20 01:24] LABS: INR 1.1; Prothrombin Time 12.3 Seconds (9.4-12.1)
[2017-07-20 01:26] LABS: Activated Partial Thrombo Time 28.5 Seconds (26.0-36.0)
[2017-07-20 01:41] LABS: Alanine Aminotransferase 39 Units/L (7-52); Albumin 4.3 g/dL (3.5-5.7); Alkaline Phosphatase 59 Units/L (34-104); Aspartate Amino Transferase 18 Units/L (13-39); BUN/Creatinine Ratio 10 (6-26); Bilirubin,Total 0.5 mg/dL (0.3-1.0); Blood Urea Nitrogen 12 mg/dL (6-20); Calcium 9.2 mg/dL (8.6-10.3); Carbon Dioxide 26 mEq/L (23-29); Chloride 107 mEq/L (98-107); Chol/HDL Ratio 4.5 (0-4.9); Cholesterol 176 mg/dL (< 200); Globulin 2.2 g/dL (2.4-3.5); Glucose 110 mg/dL (70-105); HDL Cholesterol 39 mg/dL (40-59); LDL Cholesterol,Calculated 111 mg/dL (0-99); Osmolality,Calculated 288 (280-300); Potassium 3.7 mEq/L (3.5-5.1); Sodium 139 mEq/L (136-145); Total Protein 6.5 g/dL (6.4-8.9); Triglycerides 129 mg/dL (< 150); eGFR For African Americans > 60 (> 60); eGFR For Non-African Americans > 60 (> 60)
[2017-07-20] MEDS: Sucralfate 1 GM TABLET PO SCH ×2 (08:54→14:11)
[2017-07-20] MEDS ORDERED: Loratadine 10 MG TABLET PO SCH (09:00)
[2017-07-20] MEDS ORDERED: Diltiazem CD (24hr) 240 MG CAPSULE PO SCH (09:00)
[2017-07-20] MEDS ORDERED: Aspirin Enteric Coated 81 MG Tablet PO SCH (09:00)
--- NOTE | 2017-07-20 10:54 | Cardiology Consult Note ---
Date of Encounter: 07/20/17 Time of Encounter: 10:20 Assessment and Plan (1) Chest pain Current Visit: Yes Status: Acute Atypical chest pain. Retrosternal chest pain worse at rest and when working with dry wall and sitting up. Pressure like and lasts 30-60min. Does not radiate. Bikes and lifts regularly with no chest pain. Most likely not cardiac related. Troponin negative x4 EKG: HR 108 NSR nuclear stress test 10/2106: negative for ischemia and infarct TTE 10/2016: EF 60% mild diastolic dysfunction per cardiology: start aspirin 81, continue home medications. Does not need further cardiac workup, cardiology will sign off. Qualifiers: Chest pain type: unspecified Qualified Code(s): R07.9 - Chest pain, unspecified (2) HTN (hypertension) Current Visit: No Status: Chronic BP controlled on lisinopril Qualifiers: Hypertension type: essential hypertension Qualified Code(s): I10 - Essential (primary) hypertension Discussion w patient/family: The assessment and plan as outlined above was discussed with the patient and/or family members who expressed understanding and agreement. All questions were answered. Thank you for involving us in the care of your patient. Please call with any questions. History of Present Illness Consult date: 07/20/17 Requesting physician: Luz Corrales Consult reason: chest pain Chief complaint: chest pain History of present illness: Mr. Garcia is a 51 year old male with past medical history of HTN, GERD, HLD who presented to [facility] complaining of chest pain for the past 3 days. He decided to come to ED because he was sitting on couch playing video games when he had the chest pressure and became diaphoretic. He describes it as pressure like, retrosternal without radiation. Lasts between 30-60min. He gets the pain multiple times a day. Nothing makes it better but sitting up makes it worse including working with his hands. He has been putting in dry wall for 2 weeks and when he is sitting working on the dry wall he will notice the pain. He noted that his chest has felt tight and he gets short of breath with coughing from the dust of the dry wall. He stated he frequently bikes and lifts weights and never gets chest pain. He denies fever, chills, syncope, nausea, headache. He had similar chest pain in October 2016 where he had a nuclear stress test that was negative for ischemia and infarct. TTE 10/2016: EF 60% mild diastolic dysfunction. He is a former smoker and no family hx of cardiac disease. In ED troponin was negative. Past Med Surg Social Fam HX - Past Medical History Medical history: GERD, hypertension, other (Patient he may have had a questionable CVA/LOC over 20 years ago. Patient denies any deficits.) Psychiatric history: no psych history - Past Surgical History Surgical History: non-contributory, vasectomy, other (Neck surgery unspecified, vasectomy) - Social History Smoking Status: Former smoker Smokeless Tobacco Status: No Alcohol use: none Drug use: none - Family History Mother Hx Family Cancer: Yes (breast) Medications and Allergies Lisinopril [Zestril] 10 mg PO DAILY 02/20/16 [History] Loratadine [Claritin] 10 mg PO DAILY 11/14/16 [History] Diltiazem CD (24hr) [Cardizem CD] 240 mg PO DAILY 07/19/17 [History] Esomeprazole Magnesium [Nexium] 40 mg PO DAILY 07/19/17 [History] Nitroglycerin [Nitroglycerin] 0.4 mg PO Q5M PRN 07/19/17 [History] Sucralfate [Carafate] 1 gm PO QID 07/19/17 [History] 3 Allergy/AdvReac Type Severity Reaction Status Date / Time No Known Allergies Allergy Verified 07/19/17 17:39 All Systems Review: The remainder of the systems were reviewed and are negative - Constitutional Constitutional: no chills, no fever(s), no headache(s) - EENT Eyes: no loss of vision - Cardiovascular Cardiovascular: chest pain at rest, diaphoresis, lightheadedness, no dyspnea on exertion, no radiating jaw, neck or arm pain, no leg edema, no palpitations, no syncope - Respiratory Respiratory: cough, dyspnea - Gastrointestinal Gastrointestinal: no abdominal pain, no diarrhea, no nausea - Musculoskeletal Musculoskeletal: no abnormal gait - Integumentary Integumentary: no erythema - Neurological Neurological: no loss of vision Physical Examination Vital Signs, Last 4 Hours Temp Pulse Resp BP Pulse Ox 07/20/17 07:23 98.0 F 66 18 108/72 96 General: Conversant, No Apparent Distress HEENT: Atraumatic, Mucus Membranes Moist Neck: No JVD Cardiac: Reg Rate and Rhythm, Normal S1 and S2 Lungs: Normal Breath Sounds, No Wheeze, Rales, Rhonchi Neuro: Alert and responsive Abdomen: Soft, Non-Tender Skin: No rashes noted on visualized skin Musculoskeletal: No Chest Wall Tenderness Extremities: No Edema Results 07/20/17 00:21 07/20/17 00:21 Lab Results 07/20/17 07/20/17 07/20/17 00:21 00:21 00:21 WBC 6.7 Hgb 15.1 Hct 44.7 Plt Count 247 INR 1.1 APTT 28.5 Sodium Potassium Chloride Carbon Dioxide BUN Creatinine Glucose Calcium Magnesium Total Bilirubin AST ALT Alkaline Phosphatase Troponin I < 0.03 B-Natriuretic Peptide 07/20/17 07/20/17 07/20/17 00:21 00:21 06:24 WBC Hgb Hct Plt Count INR APTT Sodium 139 Potassium 3.7 Chloride 107 Carbon Dioxide 26 BUN 12 Creatinine 1.15 Glucose 110 H Calcium 9.2 Magnesium 2.0 Total Bilirubin 0.5 AST 18 ALT 39 Alkaline Phosphatase 59 Troponin I < 0.03 B-Natriuretic Peptide 7 Consult Discharge Plan - Plan Referrals: Greyson,Mick Spence MD [Primary Care Provider] -
[2017-07-20 11:06] VITALS: BP 109/70
--- NOTE | 2017-07-20 15:07 | Discharge Summary ---
- NOTES TO OUTPATIENT PROVIDER Notes to Outpatient Provider: pcp one week and can decide on need to order MRI of shoulder after review of xray Date of Encounter: 07/20/17 Time of Encounter: 15:01 - Discharge Diagnosis (1) Chest pain Priority: Primary Status: Acute Qualifiers: Chest pain type: unspecified Qualified Code(s): R07.9 - Chest pain, unspecified (2) Pain of left scapula Priority: Primary Status: Chronic (3) GERD (gastroesophageal reflux disease) Priority: Primary Status: Chronic Qualifiers: Esophagitis presence: esophagitis presence not specified Qualified Code(s) : K21.9 - Gastro-esophageal reflux disease without esophagitis (4) HTN (hypertension) Priority: Primary Status: Chronic Qualifiers: Hypertension type: essential hypertension Qualified Code(s): I10 - Essential (primary) hypertension (5) Asthma without acute exacerbation Priority: Primary Status: Chronic Hospital course: Mr. Garcia is a 51 year old male with a history of hypertension chronic left scapular pain, asthma who presented with mid sternum chest pain. There was no radiation and nothing made it better or worse. No numbness or tingling. No alleviating or aggravating factors. He stated he had a similar pain last summer and was admitted with echocardiogram and stress test completed in September 2016. Cardiology was consulted reviewed the chart and recommended an addition of a 81 mg aspirin. The was determined to be a noncardiac chest pain. His hypertension is well controlled on lisinopril. Scapula x-ray revealed a slight bony hypertrophy at that clinic correlate which could represent enthesopathy, recommend MRI. Patient was advised to follow-up with his PCP to see if he wanted to proceed with an MRI or sent to see a orthopedic service. Chest x-ray showed no acute findings. Troponins were negative at less than 0.03. Cholesterol 176, triglycerides 129, LDL cholesterol 111 and HDL cholesterol 39. Continue a statin. GERD is controlled with Carafate and Prilosec. Discharge discussed with: patient, family, nurse - Time Spent with Patient Total time spent providing and/or coordinating discharge services: Less than 30 minutes - Discharge Medications Prescriptions: Atorvastatin Calcium [Lipitor] 20 mg PO HS #30 tablet Home Medications: Lisinopril [Zestril] 10 mg PO DAILY 02/20/16 [History] Loratadine [Claritin] 10 mg PO DAILY 11/14/16 [History] Diltiazem CD (24hr) [Cardizem CD] 240 mg PO DAILY 07/19/17 [History] Esomeprazole Magnesium [Nexium] 40 mg PO DAILY 07/19/17 [History] Nitroglycerin 0.4 mg PO Q5M PRN 07/19/17 [History] Sucralfate [Carafate] 1 gm PO QID 07/19/17 [History] Aspirin Enteric Coated [Aspirin EC] 81 mg PO DAILY tablet. 07/20/17 [Rx] Atorvastatin Calcium [Lipitor] 20 mg PO HS #30 tablet 07/20/17 [Rx] Allergies/Adverse Reactions: 3 Allergy/AdvReac Type Severity Reaction Status Date / Time No Known Allergies Allergy Verified 07/19/17 17:39 Date of admission: 07/19/17 19:45 Primary care physician: Mick Rubi MD Consults: 07/19/17 21:14 Consult to Physician [CONS] Routine Consulting Provider: Claire Rivero Reason for Consult: chest pain Call Completed: No 07/20/17 08:13 Consult to Cardiology [CONS] Routine Comment: Consulting Provider: Cardiology Justina Reason for Consult: chest pain Call Completed: No Discharging clinician: Luz Corrales Anticipated date of discharge: 07/20/17 - Constitutional Vitals: Temp Pulse Resp BP Pulse Ox 98.2 F 78 18 109/70 99 07/20/17 11:05 07/20/17 11:05 07/20/17 11:05 07/20/17 11:05 07/20/17 11:05 General appearance: Present: cooperative, A&O X 3, pleasant, no acute distress, answers questions appropriately - Head Head exam: Present: atraumatic, normocephalic - Eye Eye exam: Present: PERRL, conjuntiva pink, sclera anicteric Pupils: Present: PERRL - Neck Neck exam general surgery: Present: supple, trachea midline. Absent: lymphadenopathy - Respiratory Respiratory exam: Present: CTAB. Absent: accessory muscle use, rales, rhonchi, wheezes - Cardiovascular Cardiovascular exam: Present: RRR, +S1, +S2. Absent: diastolic murmur, gallop, rubs, systolic murmur - GI/Abdominal GI/Abdominal exam: Present: normal bowel sounds, soft, no peritoneal signs. Absent: distended, tenderness - Extremities Exam Extremities exam: Present: warm, radial pulses palpable and symmetrical. Absent : calf tenderness, cyanotic, pedal edema - Neurological Exam Neurological exam: Present: alert, oriented X3, no focal deficits. Absent: pronater drift, facial droop, speech deficit - Skin Skin exam: Present: dry, intact, normal color, warm - Patient Status Disposition: Home, Self-Care Condition: Undetermined Functional capacity at discharge: independent ambulation Overall status at discharge: patient is progressing back to baseline - Discharge Instructions Instructions: Chest Pain (DC) Follow Up With: Mick Rubi MD [Primary Care Provider] - (Please call to schedule hospital follow up appointment within 1 week) - Diet and Activity Activity: resume usual activities as tolerated Diet: advance to your usual diet, low fat, low cholesterol, low salt diet
--- NOTE | 2017-07-20 22:41 | Electrocardiograph Report ---
[place] [id number] Test Date: 2017-07-19 Pat Name: Cayetano Garcia Department: 103 Room: 3B Gender: M Level Designer: : 1965 Requested By: Oscar Vela Order Number: [id number] Reading MD: Liu Simon DO Measurements Intervals [place] Rate: 76 P: 58 AR: 128 QRS: 18 QRSD: 105 T: 59 QT: 369 QTc: 400 Interpretive Statements SINUS RHYTHM Electronically Signed On 07-20-2017 22:39:51 EDT by Liu Simon DO
== END 2017-07-20 15:39 | disposition home or self-care (01) ==
LOC: EMEROO 17:36 → 3BNU 17:36
PROVIDERS: ADMIT Internal Medicine; ATTEND Registered Nurse

== ENCOUNTER 2020-12-07 08:34 | Observation (INO) ==
[2020-12-07] MEDS ORDERED: Aspirin 81 MG TAB.CHEW PO ONE (08:43)
[2020-12-07] MEDS ORDERED: Ondansetron 4 MG/2 ML VIAL IVP ONE (08:43)
[2020-12-07 09:12] LABS: Basophils # 0.1 K/mcL (0.0-0.2); Basophils % 0.8 %; Eosinophils # 0.2 K/mcL (0.0-0.6); Eosinophils % 2.9 %; Hematocrit 43.6 % (37.5-50.1); Hemoglobin 15.3 g/dL (12.9-16.9); Immature Granulocytes % 0.3 % (0-4); Lymphocytes # 1.6 K/mcL (0.6-4.6); Lymphocytes % 24.9 %; Mean Corpuscular HGB Conc 35.1 g/dL (31.6-35.5); Mean Corpuscular Hemoglobin 30.1 pg (28.0-33.3); Mean Corpuscular Volume 85.8 fL (83.0-100.0); Mean Platelet Volume 10.2 fL (9.4-12.4); Monocytes # 0.5 K/mcL (0.0-1.3); Monocytes % 8.1 %; Neutrophils # 3.9 K/mcL (1.6-8.9); Platelet Count 212 K/mcL (140-400); Red Blood Count 5.08 M/mcL (4.19-5.50); Red Cell Distribution Width 11.6 % (11.5-14.5); White Blood Count 6.3 K/mcL (4.3-11.1)
[2020-12-07 09:19] LABS: INR 1.1; Prothrombin Time 12.8 Seconds (9.4-12.1)
[2020-12-07 09:33] LABS: BUN/Creatinine Ratio 11 (6-26); Blood Urea Nitrogen 13 mg/dL (6-20); Calcium 9.3 mg/dL (8.6-10.3); Carbon Dioxide 26 mEq/L (23-29); Chloride 104 mEq/L (98-107); Glucose 141 mg/dL (70-105); Osmolality,Calculated 290 (280-300); Potassium 4.1 mEq/L (3.5-5.1); Sodium 139 mEq/L (136-145); eGFR For African Americans > 60 (> 60); eGFR For Non-African Americans > 60 (> 60)
[2020-12-07 09:34] LABS: Troponin I < 0.03 ng/mL (< 0.04)
[2020-12-07] MEDS ORDERED: Naloxone 0.4 MG/ML INJ IVP PRN ×2 (10:36→11:29)
[2020-12-07] MEDS ORDERED: Perflutren Lipid Microsphere 1.3 ML in 0.9 % Sodium Chloride 8.7 ML IVP PRN (10:39)
[2020-12-07 11:15] LABS: Chol/HDL Ratio 4.7 (0-4.9); Cholesterol 199 mg/dL (< 200); HDL Cholesterol 42 mg/dL (40-59); LDL Cholesterol,Calculated 119 mg/dL (< 100); Triglycerides 188 mg/dL (< 150)
[2020-12-07 11:20] LABS: Estimated Average Glucose 108 mg/dl; Hemoglobin A1C 5.4 %
[2020-12-07 15:44] LABS: Magnesium 1.9 mg/dL (1.6-2.6); Troponin I < 0.03 ng/mL (< 0.04)
[2020-12-07] MEDS: Folic Acid 1 MG TABLET PO SCH (15:51)
[2020-12-07] MEDS: Thiamine (B-1) 100 MG TABLET PO SCH (15:51)
[2020-12-07] MEDS: Sucralfate 1 GM TABLET PO SCH ×2 (15:51→20:24)
[2020-12-07] MEDS: *HR* Heparin 5,000 UNIT/ML VIAL SQ SCH (18:54)
[2020-12-08 04:46] VITALS: O2SAT 95
[2020-12-08] MEDS: *HR* Heparin 5,000 UNIT/ML VIAL SQ SCH (05:16)
[2020-12-08] MEDS ORDERED: Acetaminophen 325 MG TABLET PO PRN (05:57)
[2020-12-08] MEDS: Sucralfate 1 GM TABLET PO SCH ×2 (06:09→12:18)
[2020-12-08] MEDS ORDERED: Regadenoson 0.4 MG/5 ML SYRINGE IVP ONE (06:11)
[2020-12-08] MEDS ORDERED: Loratadine 10 MG TABLET PO SCH (09:00)
[2020-12-08] MEDS ORDERED: Aspirin Enteric Coated 81 MG Tablet PO SCH (09:00)
[2020-12-08] MEDS ORDERED: lisinopriL 10 MG TABLET PO SCH (09:00)
[2020-12-08] MEDS ORDERED: Ondansetron 4 MG/2 ML VIAL IVP PRN (09:55)
[2020-12-08] MEDS: Thiamine (B-1) 100 MG TABLET PO SCH (10:12)
[2020-12-08] MEDS: Folic Acid 1 MG TABLET PO SCH (10:12)
[2020-12-08 10:15] VITALS: BP 126/80; PULSE 63; TEMP 97.9
== END 2020-12-08 13:15 | disposition home or self-care (01) ==
LOC: EMEROOARM 08:34 → CDU 08:34
PROVIDERS: ADMIT Internal Medicine; ATTEND Internal Medicine